=== PATIENT | female | born 1965 | race Caucasian/White ===

== ENCOUNTER 2020-11-25 09:06 | Day surgery (SDC) | payer BC ==
[2020-11-22 11:51] VITALS: BMI 35.4
[2020-11-25] MEDS ORDERED: Lidocaine 1% PF 5 ML VIAL ONE (09:26)
[2020-11-25] MEDS ORDERED: Glycopyrrolate 0.2 MG/ML 5 ML SYRINGE ONE (09:26)
[2020-11-25] MEDS ORDERED: Esmolol 100 MG/10 ML VIAL ONE (09:26)
[2020-11-25] MEDS ORDERED: Rocuronium Bromide 10 MG/ML (10ML VIAL) ONE (09:26)
[2020-11-25] MEDS ORDERED: Dexamethasone 20 MG/5 ML VIAL ONE (09:26)
[2020-11-25] MEDS ORDERED: Ondansetron PF 4 MG/2 ML Vial ONE (09:26)
[2020-11-25] MEDS ORDERED: PROPOFOL 200 MG/20 ML VIAL ONE (09:26)
[2020-11-25] MEDS ORDERED: Acetaminophen 500 MG TAB ONE (09:39)
[2020-11-25] MEDS ORDERED: Scopolamine 1.5 mg/72 hour Patch ONE (09:39)
[2020-11-25] MEDS ORDERED: Ketorolac Tromethamine 30 MG/ML VIAL ONE (09:39)
[2020-11-25] MEDS ORDERED: Lidocaine 1% w/Epinephrine 1:100K 20 ML VIAL ONE (13:06)
[2020-11-25] MEDS ORDERED: Bupivacaine PF 0.5% 30 ML VIAL ONE (13:06)
[2020-11-25] MEDS ORDERED: Fentanyl 100 MCG/2 ML VIAL ONE ×3 (13:09→15:15)
[2020-11-25] MEDS ORDERED: Famotidine/PF 20 mg/2ml Vial ONE (13:09)
[2020-11-25] MEDS ORDERED: HYDROcodone/Acetaminophen 5/325 mg Tablet ONE (15:58)
== END 2020-11-25 16:35 | disposition home or self-care (01) ==
LOC: SDC 09:06
PROVIDERS: ATTEND Specialist
PROC: 0FT44ZZ Resection of Gallbladder, Percutaneous Endoscopic Approach (ICD-10-PCS; principal; 2020-11-25)
DX: K80.10 Calculus of gallbladder with chronic cholecystitis without obstruction (principal); R73.03 Prediabetes; Z79.82 Long term (current) use of aspirin; Z88.2 Allergy status to sulfonamides; Z91.041 Radiographic dye allergy status
CPT/HCPCS: 88304; 93005; 93010; J0690; J1100; J1885; J2405; J2704; J3010; S0020; S0028